=== PATIENT | male | born 1960 | race Two or more races ===

== ENCOUNTER 2019-03-16 12:02 | Emergency (ER) | payer MEDICAID ==
[~2019-03-16] VITALS: Ht 167.6 cm; Wt 121.1 kg
[2019-03-16 12:12] VITALS: BP 144/75
--- NOTE | 2019-03-16 12:48 | NUR ---
CALLED [facility] FOR TRANSPORT ETA OF 1400 WAS GIVEN. TRIP#[id number]
[2019-03-16] MEDS ORDERED: IBUPROFEN 600 MG TABLET PO ONE ×3 (13:00→13:09)
[2019-03-16] MEDS ORDERED: ACETAMINOPHEN ES 500 MG TABLET ONE (13:10)
[2019-03-16] MEDS ORDERED: ACETAMINOPHEN ES 500 MG TABLET PO ONE (13:30)
== END 2019-03-16 13:35 | disposition home or self-care (01) ==
LOC: ER 12:05
DX: K02.9 Dental caries, unspecified (principal); I10 Essential (primary) hypertension; F32.9 Major depressive disorder, single episode, unspecified

== ENCOUNTER 2019-05-15 21:38 | Emergency (ER) | payer MEDICAID ==
[~2019-05-15] VITALS: Ht 172.7 cm; Wt 119.7 kg
--- NOTE | 2019-05-15 22:02 | NUR ---
PT BIBPA FOR AGGRESSIVE BEHAVIOR TOWARDS STAFF AND BEING NONCOMPLIANT WITH CARE. PT IS A/OX2-3, BREATHING EVEN AND UNLABORED. DENIES SOB AND PAIN AT THIS TIME. HOB ELEVATED. CONNECTED TO [employer]. WILL CONTINUE TO MONITOR
--- NOTE | 2019-05-15 22:21 | NUR ---
MD AT BEDSIDE FOR EVALUATION
[2019-05-15] MEDS ORDERED: LIDOCAINE 1%-EPI 1:100,000 20 ML VIAL ONE (22:46)
--- NOTE | 2019-05-15 23:05 | NUR ---
Patient refusing blood draw. Dr Keller notified.
--- NOTE | 2019-05-15 23:55 | NUR ---
[facility] called for transport. ETA 45 min. Trip#[id number]
--- NOTE | 2019-05-16 00:31 | NUR ---
REPORT GIVEN TO MORGAN AT [facility]
--- NOTE | 2019-05-16 01:28 | NUR ---
PT REFUSING TO BE DISCHARGED TO FACILITY DESPITE EDUCATION X3. DR. PLASCENCIA AT BEDSIDE TO EXPLAIN TO PT HOWEVER PT STILL REFUSING.
--- NOTE | 2019-05-16 02:35 | NUR ---
PT ASLEEP, RESTING COMFORTABLY IN BED. BREATHING EVEN AND UNLABORED. IN NO ACUTE DISTRESS. WILL CONTINUE TO MONITOR
--- NOTE | 2019-05-16 07:00 | NUR ---
PT ASLEEP, BREATHING EVEN AND UNLABORED. IN NO ACUTE DISTRESS. ENDORSED TO ONCOMING SHIFT CAITLIN.
[2019-05-16 09:09] VITALS: BP 111/63
--- NOTE | 2019-05-16 09:09 | NUR ---
PT ASKING TO LEAVE, REQUESTS A BUS TOKEN. REFUSES RESOURCES. DISCUSSED RISKS OF REFUSING RETURN TO [facility] AND PT STILL REFUSES. PROVIDED WITH TAP CARD. DISCHARGE INSTRUCTIONS GIVEN, EXPLAINED, AND PT VERBALIZES UNDERSTANDING. DISCHARGED TO SELF-CARE.
== END 2019-05-16 09:22 | disposition home or self-care (01) ==
LOC: ER 21:38
DX: L72.0 Epidermal cyst (principal); L72.3 Sebaceous cyst; L02.414 Cutaneous abscess of left upper limb; L89.90 Pressure ulcer of unspecified site, unspecified stage; F31.9 Bipolar disorder, unspecified; I10 Essential (primary) hypertension; D64.9 Anemia, unspecified; E66.01 Morbid (severe) obesity due to excess calories; Z68.41 Body mass index [BMI] 40.0-44.9, adult
CPT/HCPCS: 10060; 99283; A6403; A6407; J3490; J7030

== ENCOUNTER 2019-05-16 10:58 | Emergency (ER) | payer MEDICAID ==
[~2019-05-16] VITALS: Ht 172.7 cm; Wt 119.7 kg
--- NOTE | 2019-05-16 11:30 | NUR ---
PT REFUSED BLOOD DRAW. DR. ROWLEY AWARE.
--- NOTE | 2019-05-16 12:35 | NUR ---
LUNCH TRAY DELIVERED
--- NOTE | 2019-05-16 13:00 | NUR ---
PT REFUSED TO CHECK HIS BP. DR. AMRIK FARMER.
--- NOTE | 2019-05-16 14:00 | NUR ---
Patient is resting comfortably in bed with eyes closed. Easily aroused. VSS Addendum: 05/16/19 at 1803 by ERIKA Amendment undone in ED - 05/16/19 at 1804 by ERIKA Patient is resting comfortably in bed with eyes closed. Easily aroused.
--- NOTE | 2019-05-16 16:00 | NUR ---
Patient is resting comfortably in bed with eyes closed. Easily aroused.
--- NOTE | 2019-05-16 16:00 | NUR ---
REFUSED TO CHECK HIS VITAL SIGNS
--- NOTE | 2019-05-16 18:03 | NUR ---
Patient is resting comfortably in bed with eyes closed. Easily aroused. PT REFUSED TO CHECK HIS VITAL SIGNS, DR. BUCHANAN AWARE.
[2019-05-16 21:14] VITALS: BP 106/84
--- NOTE | 2019-05-16 21:15 | NUR ---
PT AAOX3, VSS. RR EVEN & UNLABORED. DENIES ANY DISCOMFORT @ THIS TIME. WILL CONT TO MONITOR.
--- NOTE | 2019-05-17 02:30 | NUR ---
Pt sleeping in [facility]. No signs of distress noted. Will cont to monitor pt.
--- NOTE | 2019-05-17 07:00 | NUR ---
Patient insisting on leaving ER. Pt refusing to wait for social director and case management. Clothing offered to patient, patient refused. Risks and benefits of leaving ER explained to patient. Patient uncooperative with staff. Pt refusing to sign AMA paperwork. Dr Guzman notified. Pt left ER in personal wheelchair.
== END 2019-05-17 07:15 | disposition left against medical advice (07) ==
LOC: ER 11:04
DX: F79 Unspecified intellectual disabilities (principal)